=== PATIENT | female | born 1955 | race Caucasian/White ===

== ENCOUNTER → 2016-12-12 | Outpatient (REF) | payer BC | LOC: M LAB REF 12:18 | PROVIDERS: ATTEND Family Medicine | DX: I10 Essential (primary) hypertension (principal) ==

== ENCOUNTER → 2016-12-12 | Outpatient (REF) | payer BC | LOC: M LAB REF 12:26 | PROVIDERS: ATTEND Internal Medicine Medical Oncology | DX: C50.919 Malignant neoplasm of unspecified site of unspecified female breast (principal) ==

== ENCOUNTER → 2017-02-21 | Outpatient (CLI) | payer BC ==
[~2017-02-21] VITALS: Ht 157.5 cm; Wt 100.7 kg
[~2017-02-21] MED LIST: ADV250INH INH; CALC-190 PO; HYDR25TAB PO; IBUP200C PO; LIDOCAINE 2% INJ 100 MG/5 ML SDV (FOR ANES.) As Ordered ONE; LISI-538 PO; PROPOFOL 200 MG/20 ML VIAL As Ordered ONE
--- NOTE | 2017-02-21 09:54 | ROOR ---
Patient Name: Norma Kelly Procedure Date: 02/21/2017 9:32 AM Date of : 1955 Age: 61 Room: [facility] Gender: Female Note Status: Finalized Procedure: Colonoscopy Indications: High risk colon cancer surveillance: Personal history of colonic polyps Providers: Kmuar Mullins Jr, MD Referring MD: Breanna Palumbo MD Requesting Provider: Medicines: Propofol per Anesthesia Complications: No immediate complications. Procedure: Pre-Anesthesia Assessment: - Prior to the procedure, a History and Physical was performed, and patient medications and allergies were reviewed. The patient is competent. The risks and benefits of the procedure and the sedation options and risks were discussed with the patient. All questions were answered and informed consent was obtained. Patient identification and proposed procedure were verified by the physician and the nurse in the pre-procedure area and in the procedure room. Mental Status Examination: alert and oriented. Airway Examination: normal oropharyngeal airway and neck mobility. Respiratory Examination: clear to auscultation. CV Examination: normal. ASA Grade Assessment: II - A patient with mild systemic disease. After reviewing the risks and benefits, the patient was deemed in satisfactory condition to undergo the procedure. The anesthesia plan was to use moderate sedation / analgesia (conscious sedation). Immediately prior to administration of medications, the patient was re-assessed for adequacy to receive sedatives. The heart rate, respiratory rate, oxygen saturations, blood pressure, adequacy of pulmonary ventilation, and response to care were monitored throughout the procedure. The physical status of the patient was re-assessed after the procedure. The Colonoscope was introduced through the anus and advanced to the cecum, identified by appendiceal orifice and ileocecal valve. The colonoscopy was performed without difficulty. The patient tolerated the procedure well. The quality of the bowel preparation was adequate and good. Findings: The perianal and digital rectal examinations were normal. Pertinent negatives include normal sphincter tone, no palpable rectal lesions and no anal lesion or abnormality was detected. Two polyps were found in the transverse colon. The polyps were small in size. These polyps were removed with a hot snare. Resection and retrieval were complete. The recto-sigmoid colon, descending colon, ascending colon, cecum, appendiceal orifice and ileocecal valve appeared normal. Multiple small and large-mouthed diverticula were found in the sigmoid colon. Impression: - Two small polyps in the transverse colon, removed with a hot snare. Resected and retrieved. - The recto-sigmoid colon, descending colon, ascending colon, cecum, appendiceal orifice and ileocecal valve are normal. - Diverticulosis in the sigmoid colon. Recommendation: - Discharge patient to home (ambulatory). - Repeat colonoscopy in 5 years for surveillance. Kumar Mullins MD Kumar Mullins Jr, MD 02/21/2017 9:53:37 AM This report has been signed electronically. Number of Addenda: 0 Note Initiated On: 02/21/2017 9:32 AM Estimated Blood Loss: Estimated blood loss: none.
[2017-02-21 10:41] VITALS: BP 139/78
== END | disposition home or self-care (01) ==
LOC: M OPP 08:48
PROVIDERS: ATTEND Surgery
DX: Z12.11 Encounter for screening for malignant neoplasm of colon (principal); D12.3 Benign neoplasm of transverse colon; K57.30 Diverticulosis of large intestine without perforation or abscess without bleeding; Z86.010 Personal history of colon polyps; Z85.3 Personal history of malignant neoplasm of breast; Z92.3 Personal history of irradiation; Z92.21 Personal history of antineoplastic chemotherapy; I99.8 Other disorder of circulatory system; K58.9 Irritable bowel syndrome, unspecified; M19.90 Unspecified osteoarthritis, unspecified site; F41.9 Anxiety disorder, unspecified; F32.9 Major depressive disorder, single episode, unspecified; J45.909 Unspecified asthma, uncomplicated; G47.30 Sleep apnea, unspecified; Z88.8 Allergy status to other drugs, medicaments and biological substances; Z79.899 Other long term (current) drug therapy

== ENCOUNTER 2017-08-20 08:28 | Inpatient (IN) | payer BC ==
[~2017-08-20] VITALS: Ht 157.5 cm; Wt 103.9 kg
[~2017-08-20 08:28] MED LIST changes: -IBUP200C PO; +IBUP200C10 PO; -LIDOCAINE 2% INJ 100 MG/5 ML SDV (FOR ANES.) As Ordered ONE; -PROPOFOL 200 MG/20 ML VIAL As Ordered ONE
[2017-08-20] MEDS ORDERED: NS 1,000 ML IV SCH (08:46)
[2017-08-20] MEDS ORDERED: ADV250INH (08:50)
[2017-08-20] MEDS ORDERED: GABA-279 (08:50)
[2017-08-20] MEDS ORDERED: ALBU17IN INH (08:50)
[2017-08-20] MEDS ORDERED: KETOROLAC 30 MG/ML VIAL (J1885) IV ONE (09:00)
[2017-08-20] MEDS ORDERED: ONDANSETRON 4MG/2ML VIAL (J2405) IV ONE (09:00)
[2017-08-20 09:03] LABS: BASO % 0.3 % (0.0-1.0); EOS # 0.1 10^3/uL (0.0-0.50); EOS % 0.6 % (0.0-3.0); IMMATURE GRANULOCYTE % 0.4 % (0-0); LYMPH # 1.1 10^3/uL (1.5-4.5); LYMPH % 9.9 % (24.0-44.0); MEAN CORPUSCULAR HEMOGLOBIN 29.6 pg (27.0-33.0); MEAN CORPUSCULAR VOLUME 87.2 fl (80.0-96.0); MONO # 0.4 10^3/uL (0.0-0.8); MONO % 3.9 % (0.0-5.0); NEUTROPHILS # 9.6 10^3/uL (1.8-7.7); NEUTROPHILS % 84.9 % (36.0-66.0); PLATELET COUNT, AUTOMATED 158 10^3/uL (150-450); WHITE BLOOD COUNT 11.3 10^3/uL (4.0-10.0)
[2017-08-20 09:06] LABS: ADD MANUAL DIFFER NO; DIFF SLIDE NUMBER 141
[2017-08-20] MEDS: fentaNYL 100 MCG/2 ML INJECTION (J3010) IV PRN ×3 (09:13→12:34)
[2017-08-20 09:55] LABS: ALBUMIN 3.6 GM/DL (3.2-5.2); ALBUMIN/GLOBULIN RATIO 0.84 (1.00-1.93); ALKALINE PHOSPHATASE 89 U/L (45-117); ALT/SGPT 88 U/L (12-78); ANION GAP 7 MEQ/L (8-16); AST/SGOT 87 U/L (15-37); BILIRUBIN,DIRECT 0.2 MG/DL (0.0-0.2); BILIRUBIN,TOTAL 0.4 MG/DL (0.2-1.0); BLOOD UREA NITROGEN 20 MG/DL (7-18); CALCIUM LEVEL 9.5 MG/DL (8.8-10.2); CARBON DIOXIDE LEVEL 28 MEQ/L (21-32); CHLORIDE LEVEL 107 MEQ/L (98-107); CREATININE FOR GFR 1.15 MG/DL (0.55-1.02); GLOMERULAR FILTRATION RATE 50.9 (>45); GLUCOSE, FASTING 188 MG/DL (80-110); POTASSIUM SERUM 4.5 MEQ/L (3.5-5.1); SODIUM LEVEL 142 MEQ/L (136-145); TOTAL PROTEIN 7.9 GM/DL (6.4-8.2)
--- NOTE | 2017-08-20 10:37 | REP ---
Abdominal series: Three views. History: Abdominal pain. Findings: Comparison chest x-ray is from May 12, 2008. There is a zone of linear fibrosis versus plate-like atelectasis in the left perihilar region. Another is seen in the right perihilar region. The lung elliott are otherwise clear. The aorta is rather tortuous. There are clips in the left axillary soft tissues as before. No free subdiaphragmatic air or infiltrate. 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 There are two loops of air-filled mildly dilated small bowel in the left mid abdomen which display air fluid levels on the upright radiograph. These are nonspecific. There is air and stool in a nondilated colon. Psoas margins and flank stripes are intact. No mass or organomegaly is seen. There are uterine myomatous calcifications to the left of midline in the pelvis. Impression: Nonspecific dilated air-fluid levels in the small bowel loops in the left mid abdomen. Question focal ileus. No evidence of free air. Bibasilar plate-like atelectasis in the lungs. Signed by John Ritter MD 08/20/2017 03:28 P
--- NOTE | 2017-08-20 11:51 | REP ---
Scanning through right upper quadrant of the abdomen demonstrates a dilated 12.1 cm gallbladder without evidence of stone, polyp, or wall thickening. No sludge is visible. The common bile duct is minimally dilated at 0.8 cm in diameter. There is evidence of fatty infiltration of the liver with areas of fat sparing near the gallbladder. No focal liver lesion is appreciated. The pancreas is largely obscured by abdominal gas. There is no evidence of ascites. There is minimal separation of central renal sinus echoes. Question mild hydronephrosis on the right. No stone or mass is seen. The right kidney measures 12.3 x 4.6 x 4.3 cm. Impression: The gallbladder is distended to 12 cm. No stone is seen. There is evidence of fatty infiltration of the liver. Minimal right-sided hydronephrosis. CBD is mildly dilated at 0.8 cm. Signed by John Ritter MD 08/20/2017 03:31 P
[2017-08-20] MEDS ORDERED: ACET1TAB17 PO (12:37)
--- NOTE | 2017-08-20 13:57 | REP ---
MRCP examination: MRI abdomen without contrast: History: Common bile duct obstruction. History of abdominal pain. Comparison right upper quadrant sonography earlier on this date. Technique: Axial and coronal T2-weighted scans are obtained with fast spin echo technique. 3-D T2-weighted MRCP exam is acquired in maximal intensity projection images are generated and displayed rotational. Source coronal images are viewed. MRCP findings: Fat sat T2-weighted scans confirm the presence of dilated gallbladder with no filling defect to suggest stone or wall abnormality. The common bile duct measures 0.7 cm in greatest anteroposterior dimension. The main pancreatic duct is mildly dilated as well measuring 0.3 cm. There is diffuse peripancreatic and pararenal fat edema on T2-weighted scans. 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 No mass or cyst is appreciated. Study is otherwise unremarkable. Intrahepatic biliary tree is not visibly dilated. Impression: Dilated gallbladder and mildly dilated common hepatic and common bile duct segments. Mild dilation of the main pancreatic duct is seen. There is a peripancreatic and pararenal fat edema pattern diffusely consistent with pancreatitis. 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 Signed by John Ritter MD 08/20/2017 03:33 P
[2017-08-20] MEDS ORDERED: ALBUTEROL 90 MCG/ACT 8GM HFA INHALER INH PRN (15:00)
[2017-08-20] MEDS: NS 1,000 ML IV SCH ×2 (15:26→21:50)
[2017-08-20] MEDS ORDERED: PERCOCET 5MG/325MG TAB PO PRN (15:30)
[2017-08-20] MEDS ORDERED: MORPHINE 2 MG/ML 1ML SYRINGE IV PRN (15:30)
[2017-08-20] MEDS ORDERED: fentaNYL 100 MCG/2 ML INJECTION (J3010) IV PRN (16:00)
--- NOTE | 2017-08-20 16:38 | HPE ---
DATE OF ADMISSION: 08/20/2017 PRIMARY CARE PROVIDER: Antonio Lyons CHIEF COMPLAINT: Right upper quadrant epigastric pain. HISTORY OF PRESENT ILLNESS: The patient is a 62-year-old female who had two glasses of wine yesterday evening and woke up this morning with epigastric and right upper quadrant pain. She had not had this pain previously and it was unlike anything she had experienced before, associated with nausea. She tells me she did have two fatty meals yesterday evening. She woke up at 4 a.m. with the pain and it persisted without relenting, prompting her to present to the emergency room at 9 a.m. At the present time, she tells me that she is still uncomfortable with abdominal pain. She denies vomiting, diarrhea, recent travel, or change in dietary habits other than the aforementioned. PAST MEDICAL HISTORY: 1. Breast cancer 10 years ago. 2. Hypertension. 3. Asthma. 4. Obstructive sleep apnea. HOME MEDICATIONS: - Tylenol 650 every 6 hours as needed for pain - hydrochlorothiazide 25 mg daily - lisinopril 20 mg daily - calcium with vitamin D 1000-800 daily - Ventolin HFA two puffs inhaled four times a day as needed for shortness of breath - Advair 250-50 inhaled one puff twice a day PAST SURGICAL HISTORY: 1. Colonoscopy times two by Dr. Mullins, she had colonic polyps. 2. Tonsillectomy and adenoidectomy. 3. Tubal ligation. 4. C6-7 cervical laminectomy in 1991. 5. Bilateral breast reduction in 1997. 6. 2006 lumpectomy with lymph node dissection. SOCIAL HISTORY: Denies tobacco. Admits to intermittent alcohol use. She works in our pain management services. ALLERGIES: SOLU-MEDROL, she had an adverse reaction once, but previously has tolerated prednisone and Decadron. MORPHINE, respiratory depression quite quickly. FAMILY HISTORY: Noncontributory. REVIEW OF SYSTEMS: Negative other than history of present illness (HPI). PHYSICAL EXAMINATION: Temperature 98.3, pulse 66, respiratory rate 18, blood pressure 167/87, oxygen saturation 96% on room air. GENERAL: She is a pleasant, obese, female laying flat in bed. She appears mildly uncomfortable. HEENT: Cranial nerves II-XII are grossly intact. She has moist mucous membranes. No elevation in her central venous pressure (CVP). CARDIOVASCULAR EXAM: S1, S2, regular rate and rhythm. RESPIRATORY EXAM: Clear. Diminished breath sounds. ABDOMINAL EXAM: Abdomen is diffusely tender to palpation. EXTREMITIES: No clubbing, cyanosis, or appreciable edema. LABORATORY STUDIES: WBC 11.3, hemoglobin 12.7, platelet count 158. Chemistry panel: Sodium 142, potassium 4.5, chloride 107, bicarbonate 28, BUN 20, creatinine 1.1, approximately her baseline, lactic acid 3.2 initially, a repeat is 2.3, AST 87, ALT 88, lipase 63,164. IMAGING: The patient did have an abdominal x-ray which revealed nonspecific dilated air fluid levels in the small bowel loops in the left mid abdomen, question focal ileus, no evidence of free air, bibasilar plate-like atelectasis in the lungs. Gallbladder ultrasound: The gallbladder is distended to 12 cm, no stones seen. There is evidence of fatty infiltration of the liver and minimal right-sided hydronephrosis. Common bile duct (CBD) is mildly dilated at 0.8. An MRCP reveals dilated gallbladder and mildly dilated common hepatic and common bile duct segments and mild dilation of the main pancreatic duct seen. There is a peripancreatic and pararenal fat edema pattern diffusely consistent with pancreatitis. 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 ASSESSMENT AND PLAN: This is a 62-year-old female with possible choledocholithiasis. 1. Possible choledocholithiasis. Patient has steatohepatitis and pancreatitis in the setting of dilated ducts. It is also certainly possible she could have alcoholic hepatitis, will check ethanol level. For the time being she is nothing by mouth. Provide her with IV fluids and pain medication. She has respiratory depression quite quickly with IV morphine and has requested Fentanyl which I will provide along with by mouth pain medication. I have spoken with Dr. Rodney of gastroenterology who will see the patient as well in consultation and I stressed the need for a potential ERCP. Will continue to trend her labs tomorrow as well as her lactate which does appear to be improving with her fluid resuscitation. 2. Chronic kidney disease. Appears relatively stable. She does not appear to be significantly worse than her baseline. Will continue to provide her with IV fluids. She should have her right hydronephrosis investigated further in the outpatient setting. 3. Obstructive sleep apnea. She will be using her home continuous positive airway pressure (CPAP) while in hospital. 4. Hypertension. We will hold her hydrochlorothiazide and lisinopril at this time as we are providing her with IV fluids. Should she become hypertensive, would consider restarting her lisinopril at 20 mg first and then her hydrochlorothiazide. 5. Asthma. Continue with her albuterol and Advair inhalers. 6. Seasonal allergies. Continue with Claritin. 7. Breast cancer, in remission. 8. Deep venous thrombosis (DVT) prophylaxis. She will be on Lovenox. DISPOSITION: The patient is admitted to the medical/surgical floor to Dr. Cisneros, who will continue following the patient at 7 a.m.
[2017-08-20] MEDS: ONDANSETRON 4MG/2ML VIAL (J2405) IV PRN (18:05)
[2017-08-20] MEDS: ADVAIR HFA 115/21MCG INHALER INH SCH (20:49)
[2017-08-20] MEDS: ENOXAPARIN 40 MG/0.4 ML SYRINGE (J1650) SC SCH (21:00)
[2017-08-20] MEDS: PANTOPRAZOLE 40MG INJ (PROTONIX) (C9113) IV SCH (21:00)
[2017-08-20 21:30] VITALS: BP 132/73; O2SAT 96
[2017-08-20] MEDS ORDERED: LR 1,000 ML IV STA (21:47)
[2017-08-20] MEDS ORDERED: LR 300 ML IV ONE (22:00)
--- NOTE | 2017-08-20 22:45 | CR.PDOC ---
[facility] Consultation Consultation DATE OF CONSULTATION: Aug 20, 2017 at 18:15 Primary surgeon: Dr. Mullins. Primary physician/ hospitalist: Dr. Zepeda / Dr. Cisneros. Reason for consult: Acute pancreatitis. HPI: Ms. Kelly is a 62-year-old woman with HTN, BA, WILLIE, came to ER for complaints of severe epigastric abdominal pain work up showed elevated Lipase and being treated for acute pancreatitis and GI consulted for the same. 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 She denies having similar type of pain but patients daughter reports that she had mild dyspeptic symptoms for a while but as they were self-limiting she did not seek medical attention.. Pertinent negative GI symptoms: Patient denies nausea, vomiting, diarrhea, abdominal pain, loss of appetite, early satiety or unintentional weight loss. No history of hematemesis, melena or hematochezia. Patient reports regular bowel movements. Review of Systems: GI: as stated above CVS: No chest pain, No palpitations, mild leg swelling intermittently in past. RS: Had asthma episodes with Shortness of breath, Wheezing intermittently. no cough CODING COMPLIANCE SPECIALIST: No dizziness, No motor weakness, No sensory problems Hematology: No bruising, No gum bleeding, Musculoskeletal: ambulating well. Skin: No rash : No hematuria, No burning sensation of the urine ENT: No ear discharge/ pain, No dysphagia. Eyes: No photophobia. Home medications: reviewed. Antithrombotic agents none... On Lisinopril. And HCTZ. Medical h/o: As above. Breast cancer 10 years ago Surgical h/o: Tubal ligation. 2006 lumpectomy with lymph node dissection Social h/o: Alcohol social alcohol 1-2 drinks of wine per month, denies smoking, IVDA/ drugs . Works in [employer]. Family h/o of GI cancers - None Prior Endoscopies: --- Colonoscopy By Dr. Mullins- this year. Exam: Vitals: reviewed. General: Alert and oriented x 3, Moderate distress from abdominal pain. HEENT: NO pallor, no icterus. Normal oropharynx, NO cervical lymph nodes. Chest: symmetric with bilateral clear air entry, CVS: S1, S2 heard, normal, no murmurs . Abdomen: non-distended, no surgical scars, soft, tenderness all over abdomen more in epigastric area, NO rigidity or guarding, no palpable masses, normal bowel sounds heard. Rectal exam: deferred.. Extremities: no pedal edema, pulses palpable. CODING COMPLIANCE SPECIALIST: no focal motor or sensory deficits. Moves all extremities Skin: no rash. Labs: reviewed. WBC 11.3, hemoglobin 12.7, platelet count 158. IMAGING: reviewed in person with radiologist. USG abdomen: NO gall stones noted. MRCP : reported as mildly dilated CBD and Common hepatic duct and PD- but measurements upper limit of normal for patient age. dilated gallbladder. NO CBD stones. Impression: - Acute pancreatitis Etiology Alcohol vs Biliary vs less likely medication related. NO evidence of CBD stone at this time especially due the normal Bilirubin,, ALP and MRCP results and no Cholelithiasis. - Mild transaminitis but normal Bilirubin level Could be NAFLD vs passed CBD stone vs cholecystitis vs r/o viral or autoimmune hepatitis. Recommendations: - Patient educated about the test results, possible differential diagnoses and All questions answered. - Keep NPO. - IV fluids prefer ringers lactate give 500 ML bolus and then 200 ml/ Hour for next 12 hours and titrate fluid drip based on fluid status. - Continuous monitoring of respiratory status ( pulse oximetry) and Urine output. - Monitor LFTs and CBC . Obtain PT/PTT and type and screen ( ordered fro tomorrow). - Depending on the clinical progression and Repeat LFTs trend will plan for further work up. - Patient educated about cessation of alcohol / smoking/ drugs. - Patient educated about the possible Need for ERCP if LFTs worsen or change in clinical status. - The procedure, indications, risks (acute pancreatitis and its complications, bleeding, perforation, infection, hypotension, respiratory depression, allergy, need for endotracheal intubation, surgery, colostomy, cardiac arrest, even ), benefits, limitations (e.g., missing a lesion), and all other alternatives ( including no intervention) were explained to the patient who understood and agreed for the procedures. Informed consent obtained. - Plan of care discussed with patient and primary team. Patient verbalized understanding. Allergies Coded Allergies: Corticosteroids (Verified Allergy, Severe, ANAPHYLAXIS, 02/14/17) Methylprednisolone (Verified Allergy, Severe, ANAPHYLAXIS, 02/14/17) Morphine (Verified Adverse Reaction, Severe, resp arrest/depression from hx, 08/20/17) Home Medications Scheduled Calcium/Vitamin D (Calcium 1000 + D 1000-800 mg-Unit) 1 Tab Tab, 1 TAB PO DAILY, (Reported) Hydrochlorothiazide (Hydrochlorothiazide) 25 Mg Tab, 25 MG PO DAILY, (Reported) Lisinopril (Lisinopril) 20 Mg Tab, 20 MG PO DAILY, (Reported) Salmeterol/Fluticasone (Advair Diskus 250-50 Mcg/Dose) 14 Puff/Inhaler Aerp, 1 PUFF INH BID, (Reported) Scheduled PRN Acetaminophen (Acetaminophen) 325 Mg Tab, 650 MG PO Q6H PRN for PAIN, (Reported) Albuterol Sulfate (Ventolin Hfa) 200 Puff/8 Gm Aers, 2 PUFF INH QID PRN for SHORTNESS OF BREATH, (Reported) JENNIFER AVILES MD Aug 20, 2017 22:45
[2017-08-21] VITALS (22 sets, daily range): BP systolic 123–148; BP diastolic 60–73; O2SAT 90–96
[2017-08-21] MEDS: PERCOCET 5MG/325MG TAB PO PRN ×4 (04:23→21:27)
[2017-08-21 05:37] LABS: MEAN CORPUSCULAR HEMOGLOBIN 29.2 pg (27.0-33.0); MEAN CORPUSCULAR HGB CONC 32.8 g/dl (32.0-36.5); MEAN CORPUSCULAR VOLUME 88.9 fl (80.0-96.0); RED CELL DISTRIBUTION WIDTH 13.1 % (11.5-14.5); WHITE BLOOD COUNT 7.4 10^3/uL (4.0-10.0)
[2017-08-21 05:48] LABS: INR 1.11
[2017-08-21 05:49] LABS: ALBUMIN 2.8 GM/DL (3.2-5.2); ALBUMIN/GLOBULIN RATIO 0.85 (1.00-1.93); BILIRUBIN,TOTAL 0.3 MG/DL (0.2-1.0); CALCIUM LEVEL 8.2 MG/DL (8.8-10.2); CREATININE FOR GFR 1.02 MG/DL (0.55-1.02); GLOMERULAR FILTRATION RATE 58.5 (>45); POTASSIUM SERUM 3.8 MEQ/L (3.5-5.1); TOTAL PROTEIN 6.1 GM/DL (6.4-8.2)
[2017-08-21] MEDS: ADVAIR HFA 115/21MCG INHALER INH SCH ×2 (07:51→20:34)
[2017-08-21] MEDS: LORATADINE 10 MG TAB PO SCH (08:32)
[2017-08-21] MEDS: ONDANSETRON 4MG/2ML VIAL (J2405) IV PRN ×3 (08:32→21:28)
--- NOTE | 2017-08-21 15:17 | IPNPDOC ---
Subjective Date Seen The patient was seen on 08/21/17. Subjective Chief Complaint/HPI Patient seen and examined at the bedside. She states that her abdominal pain has significantly improved this morning. Objective Physical Examination General Exam: Positive: Alert, Cooperative, No Acute Distress ENT Exam: Positive: Atraumatic, Mucous membr. moist/pink Neck Exam: Negative: JVD Chest Exam: Positive: Clear to auscultation, Normal air movement Heart Exam: Positive: Rate Normal, Normal S1, Normal S2 Abdomen Exam: Positive: Soft, Tenderness (mild tenderness to deep palpation in the supraumbilical region. No rebound tenderness, guarding, or rigidity noted.) Extremity Exam: Negative: Tenderness, Swelling Psych Exam: Positive: Oriented x 3 Assessment /Plan Plan/VTE VTE Prophylaxis Ordered?: Yes Plan Acute Pancreatitis of Unclear Etiology MRCP notable for dilated gallbladder and mildly dilated CHD and CBD, however no cholelithiasis noted The patient's LFT's, Alk Phos, PT/INR levels, and Bilirubin levels are WNL this AM Viral/Autoimmune work up pending s/p IVF Hydration Patient does state that she is feeling better this morning, and she has been started on a clear liquid diet We will cont to monitor her course Transient Transaminitis Possibly attributable to Acute Pancreatitis/Passed CBD stone vs Underlying Fatty liver which was noted on MRI Will cont to trend LFTs Hypertension, stable Lisinopril restarted Will restart HCTZ if the patient's volume status is stable GERD Cont PPI Mild Right Sided Incidental Hydronephrosis noted on MRI/US Abd No signs of infection, flank pain, or renal function compromise Patient advised to follow up as an outpatient for further monitoring Asthma Continue current regimen Seasonal allergies Continue Claritin Obstructive sleep apnea Continue CPAP at home settings History of breast cancer, in remission DVT Prophylaxis Lovenox SC VS, I&O, 24H, Fishbone Vital Signs/I&O Vital Signs Date Time Temp Pulse Resp B/P (MAP) Pulse Ox O2 Delivery O2 Flow Rate FiO2 08/21/17 14:03 93 Room Air 08/21/17 12:20 18 08/21/17 12:00 98.1 73 138/69 (92) I&O- Last 24 Hours up to 6 AM 08/22/17 06:00 Intake Total 240 ml Output Total 350 ml Balance -110 ml Laboratory Data 24H LABS Laboratory Tests 2 08/21/17 05:18: Prothrombin Time 14.5, Prothromb Time International Ratio 1.11, Activated Partial Thromboplast Time 28.7, Anion Gap 7L, Glomerular Filtration Rate 58.5, Lactic Acid Level 0.8, Blood Urea Nitrogen 20H, Creatinine 1.02, Sodium Level 145, Potassium Level 3.8, Chloride Level 112H, Carbon Dioxide Level 26, Calcium Level 8.2L, Aspartate Amino Transf (AST/SGOT) 22, Alanine Aminotransferase (ALT/ SGPT) 52, Alkaline Phosphatase 64, Total Bilirubin 0.3, Triglycerides Level 252H , LDL Cholesterol 74.6, Total Protein 6.1#L, Albumin 2.8#L, Albumin/Globulin Ratio 0.85L, Total Cholesterol 153, Non-HDL Cholesterol (LDL + VLDL) 125, Total HDL Cholesterol 28L, Cholesterol/HDL Ratio 5.464H, Lipase 5414H CBC/BMP Laboratory Tests 08/21/17 05:18 Red Blood Count 3.70 L, Mean Corpuscular Volume 88.9, Mean Corpuscular Hemoglobin 29.2, Mean Corpuscular Hemoglobin Concent 32.8, Red Cell Distribution Width 13.1, Calcium Level 8.2 L, Aspartate Amino Transf (AST/SGOT) 22, Alanine Aminotransferase (ALT/SGPT) 52, Alkaline Phosphatase 64, Total Bilirubin 0.3, Triglycerides Level 252 H, LDL Cholesterol 74.6, Total Protein 6.1 #L, Albumin 2.8 #L CAROLANN BREEN MD Aug 21, 2017 15:17
[2017-08-21] MEDS: LISINOPRIL 20 MG TAB PO SCH (15:23)
[2017-08-21] MEDS: LR 1,000 ML IV SCH ×2 (16:20→23:40)
[2017-08-21] MEDS: ENOXAPARIN 40 MG/0.4 ML SYRINGE (J1650) SC SCH (21:27)
[2017-08-21] MEDS: PANTOPRAZOLE 40MG INJ (PROTONIX) (C9113) IV SCH (21:27)
[2017-08-22] VITALS (13 sets, daily range): BP systolic 152–173; BP diastolic 72–103; O2SAT 91–94
[2017-08-22] MEDS: PERCOCET 5MG/325MG TAB PO PRN ×4 (04:31→22:33)
[2017-08-22] MEDS: ONDANSETRON 4MG/2ML VIAL (J2405) IV PRN (05:09)
[2017-08-22 05:24] LABS: MEAN CORPUSCULAR HGB CONC 32.7 g/dl (32.0-36.5); MEAN CORPUSCULAR VOLUME 88.9 fl (80.0-96.0); RED CELL DISTRIBUTION WIDTH 12.9 % (11.5-14.5); WHITE BLOOD COUNT 6.8 10^3/uL (4.0-10.0)
[2017-08-22 05:51] LABS: ALBUMIN 2.8 GM/DL (3.2-5.2); ALBUMIN/GLOBULIN RATIO 0.78 (1.00-1.93); ALKALINE PHOSPHATASE 69 U/L (45-117); ALT/SGPT 40 U/L (12-78); ANION GAP 10 MEQ/L (8-16); AST/SGOT 11 U/L (15-37); BILIRUBIN,TOTAL 0.3 MG/DL (0.2-1.0); BLOOD UREA NITROGEN 14 MG/DL (7-18); CALCIUM LEVEL 8.3 MG/DL (8.8-10.2); CARBON DIOXIDE LEVEL 25 MEQ/L (21-32); CHLORIDE LEVEL 109 MEQ/L (98-107); CREATININE FOR GFR 0.86 MG/DL (0.55-1.02); GLOMERULAR FILTRATION RATE > 60.0 (>45); GLUCOSE, FASTING 97 MG/DL (80-110); POTASSIUM SERUM 3.5 MEQ/L (3.5-5.1); SODIUM LEVEL 144 MEQ/L (136-145); TOTAL PROTEIN 6.4 GM/DL (6.4-8.2)
[2017-08-22] MEDS: ADVAIR HFA 115/21MCG INHALER INH SCH ×2 (07:24→20:10)
[2017-08-22] MEDS: LR 1,000 ML IV SCH ×2 (08:25→18:37)
[2017-08-22] MEDS: LORATADINE 10 MG TAB PO SCH (09:07)
[2017-08-22] MEDS: LISINOPRIL 20 MG TAB PO SCH (09:07)
--- NOTE | 2017-08-22 10:11 | REP ---
Right upper quadrant sonography: History: Follow-up ultrasound. Comparison sonography August 20, 2017. Comparison MRI study August 20, 2017 as well. Prior study showed dilated gallbladder and common bile duct. Sonographic findings: Scanning through right upper quadrant of the abdomen again demonstrates a dilated gallbladder, 12.0 cm in diameter. Gallbladder wall is not visibly thickened. No tenderness to scanning. No stone or polyp seen. Common bile duct is at the upper range of normal measuring 7 mm today. There is evidence of mild fatty infiltration of the liver. No focal liver lesion is seen. Pancreas is obscured by abdominal gas. Minimal fullness of the intrarenal collecting system of the right renal moiety is again seen. Right renal dimensions are recorded as 13.1 x 3.9 x 4.1 cm. Impression: Essentially unchanged from comparison sonography. Signed by John Ritter MD 08/22/2017 11:24 A
--- NOTE | 2017-08-22 10:24 | REP ---
CT abdomen pelvis without IV and oral contrast: There are no comparison CT studies. There is a comparison ultrasound dated 08/20/2017. The visualized lung elliott are unremarkable. There are no pleural effusions. The unenhanced hepatic parenchyma is homogeneous. The gallbladder is distended measuring up to 4.0 cm transverse diameter. There is mild pericholecystic mesenteric stranding. This may represent acalculous cholecystitis. There are no gallbladder calculi. There is no intrahepatic or extrahepatic biliary duct dilatation, the common duct measures 7 mm in diameter. There is minimal peripancreatic stranding compatible with occluded hold diagnosis of pancreatitis. There is no pancreatic pseudocyst. The spleen is normal size and homogeneous. The adrenals are unremarkable. There is no hydronephrosis. 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 There is a 5 mm nonobstructive calculus in the lower pole of the right renal moiety. The study is insensitive for evaluation of renal masses in the absence of IV contrast. The abdominal aorta is unremarkable. There is no bowel distension or obstruction. Pelvis: The appendix is unremarkable except for a small appendicolith at the appendiceal tip. There are multiple uterine calcifications compatible with degenerating fibroids. The adnexa are unremarkable. The bladder is unremarkable. There is no pelvic adenopathy or ascites. The pelvic bowel loops are unremarkable. Impression: The gallbladder is distended measuring up to 4 cm transverse diameter. This is compatible with hydrops in the appropriate clinical setting. There is mild pericholecystic mesenteric stranding, nonspecific but possibly acalculous cholecystitis. Consider a radionuclide biliary scan and gallbladder ejection fraction for further evaluation. The pancreas is normal size. There is mild peripancreatic mesenteric stranding compatible with the clinical diagnosis of pancreatitis. There is no pancreatic pseudocyst. 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 The study is insensitive for renal masses in the absence of IV contrast. There is no adenopathy or ascites. There is a tiny appendicolith. The appendix is otherwise unremarkable. There are uterine calcifications suggesting degenerating fibroids. Signed by Ronak Gray MD 08/22/2017 10:15 A
[2017-08-22] MEDS: hydroCHLOROthiazide 25 MG TAB PO SCH (10:54)
[2017-08-22] MEDS: METOCLOPRAMIDE INJ 10MG/2ML VIAL (J2765) IV PRN ×2 (10:54→21:20)
--- NOTE | 2017-08-22 12:20 | IPNPDOC ---
Subjective Date Seen The patient was seen on 08/22/17. Subjective Chief Complaint/HPI Patient seen and examined at bedside the spine. States that her abdominal pain is improved, and that she was able to tolerate a liquid diet yesterday. However , the patient states that she was nauseous this morning. Objective Physical Examination General Exam: Positive: Alert, Cooperative, No Acute Distress ENT Exam: Positive: Atraumatic, Mucous membr. moist/pink Neck Exam: Negative: JVD Chest Exam: Positive: Clear to auscultation, Normal air movement Heart Exam: Positive: Rate Normal, Normal S1, Normal S2 Abdomen Exam: Positive: Soft, Tenderness (mild tenderness to deep palpation in the supraumbilical region. No rebound tenderness, guarding, or rigidity noted.) Extremity Exam: Negative: Tenderness, Swelling Psych Exam: Positive: Oriented x 3 Assessment /Plan Plan/VTE VTE Prophylaxis Ordered?: Yes Plan Acute Pancreatitis of Unclear Etiology MRCP notable for dilated gallbladder and mildly dilated CHD and CBD, however no cholelithiasis noted The patient's LFT's, Alk Phos, PT/INR levels, and Bilirubin levels are WNL this AM Viral/Autoimmune work up pending IVF Hydration Patient has been tolerating a clear liquid diet since yesterday--however she is complaining of nausea this AM We will repeat CT Scan of the Abd, U/S GB to r/o any acute changes We will cont to monitor her course Transient Transaminitis Possibly attributable to Acute Pancreatitis/Passed CBD stone vs Underlying Fatty liver which was noted on MRI Will cont to trend LFTs Hypertension, stable Lisinopril, HCTZ GERD Cont PPI Mild Right Sided Incidental Hydronephrosis noted on MRI/US Abd No signs of infection, flank pain, or renal function compromise Patient advised to follow up as an outpatient for further monitoring Asthma Continue current regimen Seasonal allergies Continue Claritin Obstructive sleep apnea Continue CPAP at home settings History of breast cancer, in remission DVT Prophylaxis Lovenox SC Dispo--Anticipate D/C in 24-48hrs pending clinical improvement. VS, I&O, 24H, Fishbone Vital Signs/I&O Vital Signs Date Time Temp Pulse Resp B/P (MAP) Pulse Ox O2 Delivery O2 Flow Rate FiO2 08/22/17 08:00 91 Room Air 08/22/17 07:30 98.2 69 20 153/82 (105) I&O- Last 24 Hours up to 6 AM 08/23/17 06:00 Output Total 200 ml Balance -200 ml Laboratory Data 24H LABS Laboratory Tests 2 08/22/17 05:08: Anion Gap 10, Glomerular Filtration Rate > 60.0, Blood Urea Nitrogen 14, Creatinine 0.86, Sodium Level 144, Potassium Level 3.5, Chloride Level 109H, Carbon Dioxide Level 25, Calcium Level 8.3L, Aspartate Amino Transf (AST/SGOT) 11L, Alanine Aminotransferase (ALT/SGPT) 40, Alkaline Phosphatase 69, Total Bilirubin 0.3, Total Protein 6.4, Albumin 2.8L, Albumin/Globulin Ratio 0.78L 08/22/17 10:33: Total Creatine Kinase 103, Creatine Kinase MB 1.9, Creatine Kinase MB Relative Index 1.84, Troponin I < 0.02 CBC/BMP Laboratory Tests 08/22/17 05:08 Red Blood Count 3.41 L, Mean Corpuscular Volume 88.9, Mean Corpuscular Hemoglobin 29.0, Mean Corpuscular Hemoglobin Concent 32.7, Red Cell Distribution Width 12.9, Calcium Level 8.3 L, Aspartate Amino Transf (AST/SGOT) 11 L, Alanine Aminotransferase (ALT/SGPT) 40, Alkaline Phosphatase 69, Total Bilirubin 0.3, Total Protein 6.4, Albumin 2.8 L CAROLANN BREEN MD Aug 22, 2017 12:20
--- NOTE | 2017-08-22 19:28 | ECGEPIP ---
Stationary ECG Study [facility] Test Date: 2017-08-22 Pat Name: ALONSO LERNER Department: Room: [place] [address] Gender: F [employer]: LOCO : 1955 Requested By: CAROLANN BREEN Order Number: [id number] Reading MD: Herberth Maurer Measurements Intervals [place] Rate: 71 P: 39 HI: 135 QRS: 1 QRSD: 102 T: 30 QT: 393 QTc: 428 Interpretive Statements SINUS RHYTHM NON-SPECIFIC STT ABNORMALITIES NO PRIOR Electronically Signed On 08-22-2017 19:27:52 EDT by Herberth Maurer
[2017-08-22] MEDS: PANTOPRAZOLE 40MG INJ (PROTONIX) (C9113) IV SCH (22:33)
[2017-08-22] MEDS: ENOXAPARIN 40 MG/0.4 ML SYRINGE (J1650) SC SCH (22:34)
[2017-08-23] VITALS: BP 133/60
[2017-08-23] MEDS: LR 1,000 ML IV SCH ×3 (02:07→16:40)
[2017-08-23] MEDS: PERCOCET 5MG/325MG TAB PO PRN ×3 (02:07→18:47)
[2017-08-23 05:34] VITALS: BP 126/71
[2017-08-23 05:52] LABS: MEAN CORPUSCULAR HEMOGLOBIN 28.7 pg (27.0-33.0); MEAN CORPUSCULAR HGB CONC 32.7 g/dl (32.0-36.5); MEAN CORPUSCULAR VOLUME 87.7 fl (80.0-96.0); RED CELL DISTRIBUTION WIDTH 12.5 % (11.5-14.5); WHITE BLOOD COUNT 6.5 10^3/uL (4.0-10.0)
[2017-08-23 06:08] LABS: ALBUMIN 2.6 GM/DL (3.2-5.2); ALBUMIN/GLOBULIN RATIO 0.76 (1.00-1.93); ALKALINE PHOSPHATASE 64 U/L (45-117); ALT/SGPT 33 U/L (12-78); ANION GAP 9 MEQ/L (8-16); AST/SGOT 11 U/L (15-37); BILIRUBIN,TOTAL 0.5 MG/DL (0.2-1.0); BLOOD UREA NITROGEN 9 MG/DL (7-18); CALCIUM LEVEL 7.7 MG/DL (8.8-10.2); CARBON DIOXIDE LEVEL 26 MEQ/L (21-32); CHLORIDE LEVEL 104 MEQ/L (98-107); CREATININE FOR GFR 0.84 MG/DL (0.55-1.02); GLOMERULAR FILTRATION RATE > 60.0 (>45); GLUCOSE, FASTING 89 MG/DL (80-110); POTASSIUM SERUM 3.4 MEQ/L (3.5-5.1); SODIUM LEVEL 139 MEQ/L (136-145)
[2017-08-23] MEDS ORDERED: POTASSIUM CHLORIDE 10 MEQ SR TABLET PO ONE (07:30)
[2017-08-23 08:00] VITALS: BP 157/78
[2017-08-23] MEDS: LORATADINE 10 MG TAB PO SCH (08:37)
[2017-08-23] MEDS: LISINOPRIL 20 MG TAB PO SCH (08:38)
[2017-08-23] MEDS: METOCLOPRAMIDE INJ 10MG/2ML VIAL (J2765) IV PRN ×2 (08:38→20:49)
[2017-08-23] MEDS: hydroCHLOROthiazide 25 MG TAB PO SCH (08:38)
[2017-08-23] MEDS: ADVAIR HFA 115/21MCG INHALER INH SCH ×2 (08:50→23:11)
--- NOTE | 2017-08-23 13:01 | REP ---
Hepatobiliary scan and gallbladder ejection fraction: History: Rule out cholecystitis. With ejection fraction. Right flank pain. Technique: 6.6 mCi of technetium-99m mebrofenin was injected and sequential anterior images are acquired. 65 minutes after the mebrofenin injection, the patient consumed 8 ounces Ensure and an additional 60 minutes of imaging was acquired. Regions of interest are plotted around the gallbladder. Findings: The initial hepatocellular parenchymal uptake phase is normal and homogeneous. Intra- and extra-hepatic bile ducts and duodenum are labeled by the 10 -minute image. The gallbladder is first labeled on the 15 -minute image. There is normal washout from the liver parenchyma into the gallbladder and small intestine on subsequent images. The gallbladder ejection fraction is 11 %. Values greater than 35 % are considered normal with this technique. Impression: Normal hepatobiliary scan and decreased gallbladder ejection fraction. Signed by John Ritter MD 08/23/2017 12:52 P
[2017-08-23 13:06] VITALS: BP 139/78
--- NOTE | 2017-08-23 13:55 | IPNPDOC ---
Subjective Date Seen The patient was seen on 08/23/17. Subjective Chief Complaint/HPI Patient seen and examined at the bedside. She states that she still has some nausea, but notes that the abdominal pain has not gotten better or worse. Denies any acute complaints from overnight. Objective Physical Examination General Exam: Positive: Alert, Cooperative, No Acute Distress ENT Exam: Positive: Atraumatic, Mucous membr. moist/pink Neck Exam: Negative: JVD Chest Exam: Positive: Clear to auscultation, Normal air movement Heart Exam: Positive: Rate Normal, Normal S1, Normal S2 Abdomen Exam: Positive: Soft, Tenderness (mild tenderness to deep palpation in the supraumbilical region. No rebound tenderness, guarding, or rigidity noted.) Extremity Exam: Negative: Tenderness, Swelling Psych Exam: Positive: Oriented x 3 Assessment /Plan Plan/VTE VTE Prophylaxis Ordered?: Yes Plan Acute Pancreatitis of Unclear Etiology MRCP notable for dilated gallbladder and mildly dilated CHD and CBD, however no cholelithiasis noted Repeat CT Scan of the Abd, U/S GB with no acute changes noted from initial studies HIDA Scan from 08/23 noted to be normal with a decreased GB EF The patient's LFT's, Alk Phos, PT/INR levels, and Bilirubin levels are WNL this AM Viral/Autoimmune work up unrevealing IVF Hydration Patient has been tolerating a clear liquid diet--we will advance this as tolerated We will cont to monitor her course Transient Transaminitis, resolved Possibly attributable to Acute Pancreatitis/Passed CBD stone vs Underlying Fatty liver which was noted on MRI Will cont to trend LFTs Hypertension, stable Lisinopril, HCTZ GERD Cont PPI Mild Right Sided Incidental Hydronephrosis noted on MRI/US Abd No signs of infection, flank pain, or renal function compromise Patient advised to follow up as an outpatient for further monitoring Asthma Continue current regimen Seasonal allergies Continue Claritin Obstructive sleep apnea Continue CPAP at home settings History of breast cancer, in remission DVT Prophylaxis Lovenox SC Dispo--Anticipate D/C in 24-48hrs pending clinical improvement. VS, I&O, 24H, Fishbone Vital Signs/I&O Vital Signs Date Time Temp Pulse Resp B/P (MAP) Pulse Ox O2 Delivery O2 Flow Rate FiO2 08/23/17 13:20 18 08/23/17 13:06 98.6 102 139/78 (98) 98 Room Air I&O- Last 24 Hours up to 6 AM 08/24/17 06:00 Intake Total 0 ml Output Total 950 ml Balance -950 ml Laboratory Data 24H LABS Laboratory Tests 2 08/22/17 17:06: Total Creatine Kinase 94, Creatine Kinase MB 1.3, Creatine Kinase MB Relative Index 1.38, Troponin I < 0.02 08/23/17 00:54: Total Creatine Kinase 83, Creatine Kinase MB 1.0, Creatine Kinase MB Relative Index 1.20, Troponin I < 0.02 08/23/17 05:24: Anion Gap 9, Glomerular Filtration Rate > 60.0, Blood Urea Nitrogen 9, Creatinine 0.84, Sodium Level 139, Potassium Level 3.4L, Chloride Level 104, Carbon Dioxide Level 26, Calcium Level 7.7L, Aspartate Amino Transf (AST/SGOT) 11L, Alanine Aminotransferase (ALT/SGPT) 33, Alkaline Phosphatase 64, Total Bilirubin 0.5#, Total Protein 6.0L, Albumin 2.6L, Albumin/Globulin Ratio 0.76L CBC/BMP Laboratory Tests 08/23/17 05:24 Red Blood Count 3.17 L, Mean Corpuscular Volume 87.7, Mean Corpuscular Hemoglobin 28.7, Mean Corpuscular Hemoglobin Concent 32.7, Red Cell Distribution Width 12.5, Calcium Level 7.7 L, Aspartate Amino Transf (AST/SGOT) 11 L, Alanine Aminotransferase (ALT/SGPT) 33, Alkaline Phosphatase 64, Total Bilirubin 0.5 #, Total Protein 6.0 L, Albumin 2.6 L CAROLANN BREEN MD Aug 23, 2017 13:55
[2017-08-23 16:00] VITALS: BP 141/82
[2017-08-23 20:30] VITALS: BP 145/71
[2017-08-23] MEDS: PANTOPRAZOLE 40MG INJ (PROTONIX) (C9113) IV SCH (20:49)
[2017-08-23] MEDS: ENOXAPARIN 40 MG/0.4 ML SYRINGE (J1650) SC SCH (20:49)
[2017-08-24] MEDS: LR 1,000 ML IV SCH ×2 (01:16→10:06)
[2017-08-24] MEDS: PERCOCET 5MG/325MG TAB PO PRN ×3 (04:46→14:15)
[2017-08-24 04:52] VITALS: BP 180/118
[2017-08-24 05:00] VITALS: BP 150/90
[2017-08-24 05:22] VITALS: BP 138/88
[2017-08-24 07:04] LABS: MEAN CORPUSCULAR HEMOGLOBIN 29.1 pg (27.0-33.0); MEAN CORPUSCULAR HGB CONC 33.7 g/dl (32.0-36.5); MEAN CORPUSCULAR VOLUME 86.6 fl (80.0-96.0); RED CELL DISTRIBUTION WIDTH 12.7 % (11.5-14.5); WHITE BLOOD COUNT 7.2 10^3/uL (4.0-10.0)
[2017-08-24 07:27] LABS: ALBUMIN 2.9 GM/DL (3.2-5.2); ALBUMIN/GLOBULIN RATIO 0.73 (1.00-1.93); ALKALINE PHOSPHATASE 78 U/L (45-117); ALT/SGPT 56 U/L (12-78); ANION GAP 9 MEQ/L (8-16); AST/SGOT 25 U/L (15-37); BILIRUBIN,TOTAL 0.5 MG/DL (0.2-1.0); BLOOD UREA NITROGEN 9 MG/DL (7-18); CALCIUM LEVEL 8.6 MG/DL (8.8-10.2); CARBON DIOXIDE LEVEL 26 MEQ/L (21-32); CHLORIDE LEVEL 103 MEQ/L (98-107); CREATININE FOR GFR 0.86 MG/DL (0.55-1.02); GLOMERULAR FILTRATION RATE > 60.0 (>45); GLUCOSE, FASTING 94 MG/DL (80-110); POTASSIUM SERUM 3.4 MEQ/L (3.5-5.1); SODIUM LEVEL 138 MEQ/L (136-145); TOTAL PROTEIN 6.9 GM/DL (6.4-8.2)
[2017-08-24] MEDS: ADVAIR HFA 115/21MCG INHALER INH SCH (07:31)
[2017-08-24 08:00] VITALS: BP 150/94
[2017-08-24] MEDS: hydroCHLOROthiazide 25 MG TAB PO SCH (08:20)
[2017-08-24 08:21] VITALS: BP 150/94
[2017-08-24] MEDS: LORATADINE 10 MG TAB PO SCH (08:21)
[2017-08-24] MEDS: LISINOPRIL 20 MG TAB PO SCH (08:21)
[2017-08-24] MEDS ORDERED: POTASSIUM CHLORIDE 10 MEQ SR TABLET PO ONE (10:00)
[2017-08-24] MEDS ORDERED: SLF 3 ML SYR IV PRN (12:30)
[2017-08-24] MEDS ORDERED: SLF 3 ML SYR IV SCH (14:00)
[2017-08-24 16:00] VITALS: BP 156/88
[2017-08-24] MEDS ORDERED: PERCOCET PO (17:16)
--- NOTE | 2017-08-25 11:58 | DS.PDOC ---
Discharge Summary General Date of Admission Aug 20, 2017 at 15:26 Date of Discharge 08/24/17 Specialist/Consultants Involve: JENNIFER AVILES MD Discharge Summary PROCEDURES PERFORMED DURING STAY: None. ADMITTING/DISCHARGE DIAGNOSES: 1. . Pancreatitis 2. . Transient transaminitis possibly 2/2 NAFLD 3. . Hypertension COMPLICATIONS/CHIEF COMPLAINT: Pancreatitis HISTORY OF PRESENT ILLNESS: . 62-year-old female with past medical history of asthma, obstructive sleep apnea , hypertension, and breast cancer presented to the ER with a chief complaint of epigastric/supraumbilical abdominal pain radiating to the left. This was associated with nausea and an episode of nonbilious vomiting. The patient stated that she did have a glass of wine and to fatty meals yesterday which exacerbated her symptoms. The patient denied any complaints of fevers, chills, chest pain, or any diarrhea. In the ER, the patient was noted to have a lipase level of 63,000. She was also noted to have a mild elevation in her AST/ALT levels., But no elevation in bilirubin or alkaline phosphatase. The patient was admitted to the hospitalist service for further evaluation and management of pancreatitis. During hospitalization, the patient was kept nothing by mouth, given analgesics , and started on IV fluid hydration. The patient did have an ultrasound of the gallbladder, CT scan of the abdomen/pelvis, an MRCP, and a HIDA scan performed with the results listed below. The patient was also seen by GI in consultation. Following supportive treatment, the patient's symptoms of abdominal pain and nausea significantly improved. The patient's diet was advanced as tolerated, and she was able to have a regular meal without any acute complaints. At this time, the patient states that she is feeling much better, and is to return home. I've advised patient to follow-up with PCP within 3-7 days. She has been consulted to return to the ER for worsening of symptoms or any other acute emergencies. DISCHARGE MEDICATIONS: Please see below. ALLERGIES: Please see below. PHYSICAL EXAMINATION ON DISCHARGE: VITAL SIGNS: Please see below. General Exam: Positive: Alert, Cooperative, No Acute Distress ENT Exam: Positive: Atraumatic, Mucous membr. moist/pink Neck Exam: Negative: JVD Chest Exam: Positive: Clear to auscultation, Normal air movement Heart Exam: Positive: Rate Normal, Normal S1, Normal S2 Abdomen Exam: Positive: Soft, No tenderness, rigidity, or rebound tenderness on deep palpation Extremity Exam: Negative: Tenderness, Swelling Psych Exam: Positive: Oriented x 3 LABORATORY DATA: Please see below. IMAGING: CT abdomen pelvis without IV and oral contrast: There are no comparison CT studies. There is a comparison ultrasound dated 08/20/2017. The visualized lung elliott are unremarkable. There are no pleural effusions. The unenhanced hepatic parenchyma is homogeneous. The gallbladder is distended measuring up to 4.0 cm transverse diameter. There is mild pericholecystic mesenteric stranding. This may represent acalculous cholecystitis. There are no gallbladder calculi. There is no intrahepatic or extrahepatic biliary duct dilatation, the common duct measures 7 mm in diameter. There is minimal peripancreatic stranding compatible with occluded hold diagnosis of pancreatitis. There is no pancreatic pseudocyst. The spleen is normal size and homogeneous. The adrenals are unremarkable. There is no hydronephrosis. 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 There is a 5 mm nonobstructive calculus in the lower pole of the right renal moiety. The study is insensitive for evaluation of renal masses in the absence of IV contrast. The abdominal aorta is unremarkable. There is no bowel distension or obstruction. Pelvis: The appendix is unremarkable except for a small appendicolith at the appendiceal tip. There are multiple uterine calcifications compatible with degenerating fibroids. The adnexa are unremarkable. The bladder is unremarkable. There is no pelvic adenopathy or ascites. The pelvic bowel loops are unremarkable. Impression: The gallbladder is distended measuring up to 4 cm transverse diameter. This is compatible with hydrops in the appropriate clinical setting. There is mild pericholecystic mesenteric stranding, nonspecific but possibly acalculous cholecystitis. Consider a radionuclide biliary scan and gallbladder ejection fraction for further evaluation. The pancreas is normal size. There is mild peripancreatic mesenteric stranding compatible with the clinical diagnosis of pancreatitis. There is no pancreatic pseudocyst. 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 The study is insensitive for renal masses in the absence of IV contrast. There is no adenopathy or ascites. There is a tiny appendicolith. The appendix is otherwise unremarkable. There are uterine calcifications suggesting degenerating fibroids. Hepatobiliary scan and gallbladder ejection fraction: History: Rule out cholecystitis. With ejection fraction. Right flank pain. Technique: 6.6 mCi of technetium-99m mebrofenin was injected and sequential anterior images are acquired. 65 minutes after the mebrofenin injection, the patient consumed 8 ounces Ensure and an additional 60 minutes of imaging was acquired. Regions of interest are plotted around the gallbladder. Findings: The initial hepatocellular parenchymal uptake phase is normal and homogeneous. Intra- and extra-hepatic bile ducts and duodenum are labeled by the 10 -minute image. The gallbladder is first labeled on the 15 -minute image. There is normal washout from the liver parenchyma into the gallbladder and small intestine on subsequent images. The gallbladder ejection fraction is 11 %. Values greater than 35 % are considered normal with this technique. Impression: Normal hepatobiliary scan and decreased gallbladder ejection fraction. MRCP examination: MRI abdomen without contrast: History: Common bile duct obstruction. History of abdominal pain. Comparison right upper quadrant sonography earlier on this date. Technique: Axial and coronal T2-weighted scans are obtained with fast spin echo technique. 3-D T2-weighted MRCP exam is acquired in maximal intensity projection images are generated and displayed rotational. Source coronal images are viewed. MRCP findings: Fat sat T2-weighted scans confirm the presence of dilated gallbladder with no filling defect to suggest stone or wall abnormality. The common bile duct measures 0.7 cm in greatest anteroposterior dimension. The main pancreatic duct is mildly dilated as well measuring 0.3 cm. There is diffuse peripancreatic and pararenal fat edema on T2-weighted scans. 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 No mass or cyst is appreciated. Study is otherwise unremarkable. Intrahepatic biliary tree is not visibly dilated. Impression: Dilated gallbladder and mildly dilated common hepatic and common bile duct segments. Mild dilation of the main pancreatic duct is seen. There is a peripancreatic and pararenal fat edema pattern diffusely consistent with pancreatitis. 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 Scanning through right upper quadrant of the abdomen demonstrates a dilated 12.1 cm gallbladder without evidence of stone, polyp, or wall thickening. No sludge is visible. The common bile duct is minimally dilated at 0.8 cm in diameter. There is evidence of fatty infiltration of the liver with areas of fat sparing near the gallbladder. No focal liver lesion is appreciated. The pancreas is largely obscured by abdominal gas. There is no evidence of ascites. There is minimal separation of central renal sinus echoes. Question mild hydronephrosis on the right. No stone or mass is seen. The right kidney measures 12.3 x 4.6 x 4.3 cm. Impression: The gallbladder is distended to 12 cm. No stone is seen. There is evidence of fatty infiltration of the liver. Minimal right-sided hydronephrosis. CBD is mildly dilated at 0.8 cm. PROGNOSIS: Fair ACTIVITY: As tolerated. DIET: . As tolerated DISCHARGE PLAN: DISPOSITION: 01 Home, Self-Care. DISCHARGE INSTRUCTIONS: 1. . Follow with PCP within 3-7 days 2. . Return to the ER for any acute emergencies DISCHARGE CONDITION: Stable. TIME SPENT ON DISCHARGE: Greater than 30 minutes. Vital Signs/I&Os Vital Signs Date Time Temp Pulse Resp B/P (MAP) Pulse Ox O2 Delivery O2 Flow Rate FiO2 08/24/17 16:00 98.9 81 18 156/88 (110) 95 Room Air Discharge Medications Scheduled Calcium/Vitamin D (Calcium 1000 + D 1000-800 mg-Unit) 1 Tab Tab, 1 TAB PO DAILY, (Reported) Hydrochlorothiazide (Hydrochlorothiazide) 25 Mg Tab, 25 MG PO DAILY, (Reported) Lisinopril (Lisinopril) 20 Mg Tab, 20 MG PO DAILY, (Reported) Salmeterol/Fluticasone (Advair Diskus 250-50 Mcg/Dose) 14 Puff/Inhaler Aerp, 1 PUFF INH BID, (Reported) Scheduled PRN Acetaminophen (Acetaminophen) 325 Mg Tab, 650 MG PO Q6H PRN for PAIN, (Reported) Albuterol Sulfate (Ventolin Hfa) 200 Puff/8 Gm Aers, 2 PUFF INH QID PRN for SHORTNESS OF BREATH, (Reported) Oxycodone/Acetaminophen (Percocet 5MG/325MG Tablet) 1 Tab Tab, 1 TAB PO Q4HP PRN for MODERATE PAIN (PS 5-7) Allergies Coded Allergies: Corticosteroids (Verified Allergy, Severe, ANAPHYLAXIS, 02/14/17) Methylprednisolone (Verified Allergy, Severe, ANAPHYLAXIS, 02/14/17) Morphine (Verified Adverse Reaction, Severe, resp arrest/depression from hx, 08/20/17) CAROLANN BREEN MD Aug 25, 2017 11:58
== END 2017-08-24 19:00 | disposition home or self-care (01) | DRG 282 ==
LOC: EDBD 08:28 → M ED 08:28 → M ED INP 15:26 → M PCU 21:23 → M PED 08-23 20:31
PROVIDERS: ADMIT Internal Medicine; ATTEND Internal Medicine
DX: K85.90 Acute pancreatitis without necrosis or infection, unspecified (principal); G47.33 Obstructive sleep apnea (adult) (pediatric); J45.909 Unspecified asthma, uncomplicated; I12.9 Hypertensive chronic kidney disease with stage 1 through stage 4 chronic kidney disease, or unspecified chronic kidney disease; D25.9 Leiomyoma of uterus, unspecified; Q63.1 Lobulated, fused and horseshoe kidney; Z79.899 Other long term (current) drug therapy; Z88.5 Allergy status to narcotic agent; Z88.8 Allergy status to other drugs, medicaments and biological substances; Z85.3 Personal history of malignant neoplasm of breast; N18.9 Chronic kidney disease, unspecified

== ENCOUNTER → 2017-08-26 | Outpatient (CLI) | payer BC ==
[~2017-08-26] MED LIST changes: +ACET1TAB17 PO; +ADV250INH; +ALBU17IN INH; +GABA-279; +PERCOCET PO
[2017-08-26 15:34] LABS: BASO % 0.7 % (0.0-1.0); EOS # 0.2 10^3/uL (0.0-0.50); EOS % 3.8 % (0.0-3.0); IMMATURE GRANULOCYTE % 0.3 % (0-0); LYMPH # 1.5 10^3/uL (1.5-4.5); LYMPH % 25.5 % (24.0-44.0); MEAN CORPUSCULAR HEMOGLOBIN 28.8 pg (27.0-33.0); MEAN CORPUSCULAR HGB CONC 33.2 g/dl (32.0-36.5); MEAN CORPUSCULAR VOLUME 86.6 fl (80.0-96.0); MONO # 0.3 10^3/uL (0.0-0.8); MONO % 5.9 % (0.0-5.0); NEUTROPHILS # 3.7 10^3/uL (1.8-7.7); NEUTROPHILS % 63.8 % (36.0-66.0); PLATELET COUNT, AUTOMATED 186 10^3/uL (150-450); RED CELL DISTRIBUTION WIDTH 12.4 % (11.5-14.5); WHITE BLOOD COUNT 5.8 10^3/uL (4.0-10.0)
[2017-08-26 16:04] LABS: ALBUMIN/GLOBULIN RATIO 0.95 (1.00-1.93); ALKALINE PHOSPHATASE 88 U/L (45-117); ALT/SGPT 61 U/L (12-78); AMYLASE 43 U/L (25-115); ANION GAP 10 MEQ/L (8-16); AST/SGOT 31 U/L (15-37); BILIRUBIN,TOTAL 0.3 MG/DL (0.2-1.0); BLOOD UREA NITROGEN 11 MG/DL (7-18); CALCIUM LEVEL 9.1 MG/DL (8.8-10.2); CARBON DIOXIDE LEVEL 25 MEQ/L (21-32); CHLORIDE LEVEL 104 MEQ/L (98-107); CREATININE FOR GFR 0.93 MG/DL (0.55-1.02); GLOMERULAR FILTRATION RATE > 60.0 (>45); GLUCOSE, FASTING 96 MG/DL (80-110); POTASSIUM SERUM 3.9 MEQ/L (3.5-5.1); SODIUM LEVEL 139 MEQ/L (136-145); TOTAL PROTEIN 7.4 GM/DL (6.4-8.2)
[2017-08-26 16:48] LABS: ALBUMIN 3.6 GM/DL (3.2-5.2)
[2017-08-29 00:08] LABS: IgG SUBCLASS 4(ONLY) 10 mg/dL (2-96)
== END ==
LOC: M LAB 15:02
PROVIDERS: ATTEND Family Medicine
DX: K85.90 Acute pancreatitis without necrosis or infection, unspecified (principal)

== ENCOUNTER 2017-10-22 09:29 | Day surgery (SDC) | payer BC ==
[~2017-10-22] VITALS: Ht 160 cm; Wt 95.3 kg
[~2017-10-22 09:29] MED LIST changes: +CLAR10CA3 PO
[2017-10-22] MEDS ORDERED: LIDOCAINE 1% MDV 20ML VIAL SQ PRN (09:45)
[2017-10-22] MEDS ORDERED: CEFAZOLIN SOD 1 GM in APPROPRIATE DILUENT 1 EA IV ONE (09:45)
[2017-10-22] MEDS ORDERED: LR 1,000 ML IV ONE (09:45)
[2017-10-22] MEDS ORDERED: ROCURONIUM BROMIDE 50 MG/5 ML VIAL As Ordered ONE (10:39)
[2017-10-22] MEDS ORDERED: MIDAZOLAM INJ 2 MG/2 ML VIAL (J2250) As Ordered ONE (10:40)
[2017-10-22] MEDS ORDERED: fentaNYL 100 MCG/2 ML INJECTION (J3010) As Ordered ONE ×3 (10:40→12:07)
[2017-10-22] MEDS ORDERED: ALBUTEROL SULFATE 2.5 MG/0.5 ML INH NEB SOLN As Ordered ONE (10:40)
[2017-10-22] MEDS ORDERED: LIDOCAINE W/EPINEPHRINE 1% 20ML VIAL As Ordered ONE (10:40)
[2017-10-22] MEDS ORDERED: PROPOFOL 200 MG/20 ML VIAL As Ordered ONE ×2 (10:41→11:38)
[2017-10-22] MEDS ORDERED: BUPIVACAINE HCL 0.5% 30 ML VIAL As Ordered ONE (10:42)
[2017-10-22] MEDS ORDERED: BUPIVACAINE HCL 0.25% 30 ML VIAL As Ordered ONE (10:52)
[2017-10-22] MEDS ORDERED: ALBUTEROL SULFATE 2.5 MG/0.5 ML INH NEB SOLN INH ONE (11:00)
[2017-10-22] MEDS ORDERED: dexameTHASONE 4 MG/ML 1ML VIAL (J1100) As Ordered ONE (11:25)
[2017-10-22] MEDS ORDERED: ONDANSETRON 4MG/2ML VIAL (J2405) As Ordered ONE (12:04)
[2017-10-22] MEDS ORDERED: KETOROLAC 60 MG/2 ML VIAL (J1885) As Ordered ONE (12:07)
[2017-10-22] MEDS ORDERED: fentaNYL 100 MCG/2 ML INJECTION (J3010) IV PRN (12:30)
[2017-10-22] MEDS ORDERED: LR 1,000 ML IV SCH ×2 (12:30→12:45)
[2017-10-22] MEDS ORDERED: HYDROmorphone HCL 1 MG/ML SYRINGE (J1170) IV PRN (12:30)
[2017-10-22] MEDS ORDERED: PERCOCET 5MG/325MG TAB PO PRN (12:30)
[2017-10-22] MEDS ORDERED: ONDANSETRON 4MG/2ML VIAL (J2405) IV PRN ×2 (12:30→12:45)
--- NOTE | 2017-10-22 12:33 | RO ---
DATE OF PROCEDURE: 10/22/2017 PREOPERATIVE DIAGNOSIS: Symptomatic gallbladder dysfunction. POSTOPERATIVE DIAGNOSIS: Symptomatic gallbladder dysfunction. PROCEDURE: Laparoscopic cholecystectomy. SURGEON: Kumar Mullins MD [employer] SPECIALIST: ANESTHESIA: General endotracheal anesthesia. ESTIMATED BLOOD LOSS: Minimal. FLUIDS: Crystalloid. BRIEF PROCEDURE SUMMARY: The patient was brought to the operating room, was given general anesthesia. After adequate anesthesia and preoperative antibiotics were given, the patient was prepped and draped in sterile fashion. Next, a supraumbilical incision was made with skin knife. Blunt dissection was carried down to fascia. Fascia was grasped with Abby clamps, elevated and a Veress needle placed into the abdominal cavity insufflated to 15 mm pressure. A dilating 10 mm trocar was placed at that time and under direct visualization an epigastric and two lateral trocars were placed. The gallbladder was grasped, retracted superiorly. There was omentum that was adherent to the gallbladder itself, which was taken down with hook cautery and eventually after this was taken down the neck of the gallbladder was cleared as well. The gallbladder itself the body of the gallbladder was in the liver and with the patient's enlarged liver it was difficult to get around at the base, but with slowly meticulous dissection eventually I was able to get the peritoneum off of the lateral aspect of the gallbladder and then off the medial aspect. Seen the cystic artery well visualized and then a window behind the neck of the gallbladder was created. Once I was able create the critical view was safety, it was obvious that there was somewhat of a transition from the cystic duct to the gallbladder neck. But this was still underneath some thickened tissue. This was mobilized with some blunt dissection as well as the hook cautery and once I was able to mobilize the cystic duct down better at this point and circumferentially I could see around this as well as the critical view of safety I clipped proximally and distally and transected this. The cystic artery was clipped as well as it was abutting the gallbladder wall and then transected with electrocautery. The gallbladder was taken from the bed using electrocautery, was placed in an EndoCatch bag placed, brought out through the umbilicus. Right upper quadrant was copiously irrigated until clear. All incisions were closed with #0 Vicryl. 4-0 Vicryl was closed for all incision skin and subcuticular closure. Steri-Strips and dry sterile dressing was applied. The patient was awakened, extubated, brought to recovery room awake, alert and hemodynamically stable. Sponge and needle counts correct times two. MTDD
[2017-10-22] MEDS ORDERED: NORCO, ANEXSIA 5/325MG TABLET (HYDROcodone/ACETAMINOPHEN) PO PRN (12:45)
[2017-10-22] MEDS ORDERED: PERCOCET 5MG/325MG TAB As Ordered ONE (14:16)
[2017-10-22 14:45] VITALS: BP 166/82
== END 2017-10-22 15:18 | disposition home or self-care (01) ==
LOC: M SDC 09:29
PROVIDERS: ATTEND Surgery
DX: K82.4 Cholesterolosis of gallbladder (principal); F32.9 Major depressive disorder, single episode, unspecified; F41.9 Anxiety disorder, unspecified; J45.909 Unspecified asthma, uncomplicated; E66.9 Obesity, unspecified; I10 Essential (primary) hypertension; K86.1 Other chronic pancreatitis; T88.59XD Other complications of anesthesia, subsequent encounter; R94.31 Abnormal electrocardiogram [ECG] [EKG]; I25.2 Old myocardial infarction; K58.9 Irritable bowel syndrome, unspecified; M12.9 Arthropathy, unspecified; M54.2 Cervicalgia; R06.83 Snoring; G47.33 Obstructive sleep apnea (adult) (pediatric); Z88.5 Allergy status to narcotic agent; Z88.8 Allergy status to other drugs, medicaments and biological substances; Z79.899 Other long term (current) drug therapy; Z87.820 Personal history of traumatic brain injury; Z78.0 Asymptomatic menopausal state; Z92.21 Personal history of antineoplastic chemotherapy; Z92.3 Personal history of irradiation; Z98.51 Tubal ligation status; Z85.3 Personal history of malignant neoplasm of breast
CPT/HCPCS: 47562; 88304; 96365; 96366; 96374; J0690; J1100; J1885; J2250; J2405; J3010

== ENCOUNTER → 2017-12-28 | Outpatient (CLI) | payer BC ==
[2017-12-28 13:18] LABS: BASO % 0.6 % (0.0-1.0); EOS # 0.2 10^3/uL (0.0-0.50); EOS % 3.4 % (0.0-3.0); HEMATOCRIT 37.4 % (36.0-47.0); HEMOGLOBIN 12.4 g/dl (12.0-16.0); IMMATURE GRANULOCYTE % 0.1 % (0-3.0); LYMPH # 2.1 10^3/uL (1.5-4.5); LYMPH % 30.3 % (24.0-44.0); MEAN CORPUSCULAR HEMOGLOBIN 28.8 pg (27.0-33.0); MEAN CORPUSCULAR HGB CONC 33.2 g/dl (32.0-36.5); MEAN CORPUSCULAR VOLUME 86.8 fl (80.0-96.0); MONO # 0.4 10^3/uL (0.0-0.8); MONO % 5.5 % (0.0-5.0); NEUTROPHILS # 4.1 10^3/uL (1.8-7.7); NEUTROPHILS % 60.1 % (36.0-66.0); PLATELET COUNT, AUTOMATED 161 10^3/uL (150-450); RED BLOOD COUNT 4.31 10^6/uL (4.00-5.40); RED CELL DISTRIBUTION WIDTH 12.6 % (11.5-14.5); WHITE BLOOD COUNT 6.8 10^3/uL (4.0-10.0)
[2017-12-28 13:35] LABS: ALBUMIN 3.6 GM/DL (3.2-5.2); ALBUMIN/GLOBULIN RATIO 0.92 (1.00-1.93); ALKALINE PHOSPHATASE 90 U/L (45-117); ALT/SGPT 21 U/L (12-78); ANION GAP 6 MEQ/L (8-16); AST/SGOT 11 U/L (7-37); BILIRUBIN,TOTAL 0.3 MG/DL (0.2-1.0); BLOOD UREA NITROGEN 21 MG/DL (7-18); CALCIUM LEVEL 8.3 MG/DL (8.8-10.2); CARBON DIOXIDE LEVEL 28 MEQ/L (21-32); CHLORIDE LEVEL 109 MEQ/L (98-107); CHOLESTEROL LEVEL 182 MG/DL (<200); CHOLESTEROL RISK RATIO 5.055 (<5); CREATININE FOR GFR 1.02 MG/DL (0.55-1.30); GLOMERULAR FILTRATION RATE 58.5 (>45); GLUCOSE, FASTING 92 MG/DL (70-100); HDL CHOLESTEROL 36 MG/DL (>40); LDL CHOLESTEROL 104.8 MG/DL (<100); NON-HDL-C 146 MG/DL; SODIUM LEVEL 143 MEQ/L (136-145); TOTAL PROTEIN 7.5 GM/DL (6.4-8.2); TRIGLYCERIDES LEVEL 206 MG/DL (<150)
== END ==
LOC: M LAB 12:27
DX: I10 Essential (primary) hypertension (principal)
CPT/HCPCS: 80053